=== PATIENT | female | born 1995 | race Caucasian/White ===

== ENCOUNTER 2022-02-17 14:15 | Emergency (ER) | payer OTHER, SELFPAY ==
[2022-02-17 15:25] VITALS: BP 133/87; PULSE 87; RESP 17; TEMP 37.2; O2SAT 99; BMI 27.8
--- NOTE | 2022-02-17 16:17 | HMH.EDUTC ---
[facility] [place] Clinical Impression: Conjunctivitis Qualifiers: Conjunctivitis type: acute Acute conjunctivitis type: unspecified Laterality: right Qualified Code(s): H10.31 - Unspecified acute conjunctivitis, right eye Disposition: Home, Self-Care Condition on Discharge: Good Instructions: How to Instill Eye Drops, DI for Conjunctivitis Additional Instructions: Use the eye drops as directed. Strict hand washing in the house hold, because conjunctivitis is very contagious. Follow up with your regular doctor. GO TO THE ER FOR ANY WORSENING SYMPTOMS OR CONCERNS Prescriptions: Moxifloxacin HCl [Vigamox] 1 drp EYE-RIGHT TID 7 Days #3 ml Transmission Status: Received by [facility] [place] Referrals: Samantha Baker PA [Primary Care Provider] - Time of Disposition: 16:20 Medical Decision Making - Medical Records Medical records reviewed: No: I reviewed the patient's medical records. - Dimitri Inquiry Pt receiving controlled substance: No Vital Signs: 02/17/22 15:25 02/17/22 16:20 Temperature 98.9 F 98.9 F Temperature Source Oral Pulse Rate 87 Pulse Rate [Right Brachial] 87 Respiratory Rate 17 17 Blood Pressure 133/87 Blood Pressure [Right Arm] 133/87 Blood Pressure Mean [Right Arm] 102 Blood Pressure Source [Right Arm] Automatic Cuff Blood Pressure Position [Right Arm] Sitting 02 Sat by Pulse Oximetry 99 Oxygen Delivery Method Room Air [facility] [place] HPI - General Stated complaint: right eye discharge/ congestion Time Seen by Provider: 02/17/22 15:30 Mode of Arrival: Ambulatory Source of Information: Patient Limitations: No Limitations Description of Symptoms (Recalled from Triage Doc. by RN): PATIENT C/O ITCHING, REDNESS, AND YELLOW DRAINAGE FROM RIGHT EYE SINCE YESTERDAY HEENT Symptoms (Recalled from RN notes): Yes Resp Symptoms (Recalled from RN notes): No Skin Symptoms (Recalled from RN notes): No MS Symptoms (Recalled from RN notes): No Functional Status (Recalled from RN notes): WNL - History of Present Illness Provider Complaint: She c/o sore throat, chills and feeling bad for the past 2 days. - Related Data Home Medications Medication Instructions Recorded Confirmed Cetirizine HCl [Zyrtec 10mg Tab*] 10 mg PO DAILY 02/17/22 02/17/22 Previous Rx's Medication Instructions Recorded Moxifloxacin HCl [Vigamox] 1 drp EYE-RIGHT TID 7 Days #3 ml 02/17/22 Allergies Allergy/AdvReac Type Severity Reaction Status Date / Time No Known Allergies Allergy Verified 02/17/22 15:48 - Worker's Comp Is this a Worker's Comp case?: No H History - Hepatitis A Screen Drug use history?: No High risk sexual behaviors?: No History of sexually transmitted infection?: No Currently employed?: No Childcare worker?: No Do you have indoor plumbing?: Yes Do you have electricity?: Yes Attestation statement:: This patient has been screened for Hepatitis A risk factors. I have reviewed the patient's past medical history: Yes ROS Obtained: Yes All systems reviewed & no additional complaints - Constitutional Constitutional: Reports as per HPI - Eyes Eyes: Denies blurry vision - ENT Ears, Nose, Mouth, and Throat: Reports as per HPI - Cardiovascular Cardiovascular: Denies chest pain Physical Exam - General General appearance: alert, in no apparent distress - Head Head exam: atraumatic, normocephalic, normal inspection - Eye Eye exam: Present: normal appearance, PERRL, EOMI - ENT ENT exam: Present: mucous membranes moist, normal external ear exam - Expanded ENT Exam TM/Canal exam: Bilateral TM: erythema, bulging Nose exam: Present: sinus tenderness Nasal speculum exam: Bilateral: normal Mouth exam: Present: normal external inspection, tongue normal. Absent: drooling Teeth exam: Present: normal inspection Throat exam: Present: tonsillar erythema, tonsillomegaly. Absent: tonsillar exudate, R peritonsillar mass, L peritonsillar mass, muffled voi
[2022-02-17 16:20] VITALS: BP 133/87; PULSE 87; RESP 17; TEMP 37.2; O2SAT 99
== END 2022-02-17 16:28 | disposition home or self-care (01) ==
PROVIDERS: Emergency Provider Nurse Practitioner Family; PCP Physician Assistant Medical
DX: H10.31 Unspecified acute conjunctivitis, right eye (principal)
CPT/HCPCS: 99212; G0463

== ENCOUNTER 2022-07-03 12:43 | Emergency (ER) | payer OTHER, SELFPAY ==
[2022-07-03 12:44] VITALS: BP 130/76; PULSE 77; RESP 16; TEMP 37; O2SAT 99; BMI 27.3
--- NOTE | 2022-07-03 12:50 | HMH.EDGENADL ---
Discharge Plan Disposition Patient Disposition: Home, Self-Care Chief Complaint: Eye Problems Prescriptions Prescriptions: No Action cetirizine 10 MG tablet 10 mg PO DAILY moxifloxacin 3 ML drops 1 drp EYE-RIGHT TID 7 Days Qty: 3 0RF Referrals Referrals: Samantha Baker PA [Primary Care Provider] - Enter time for follow up Activity Restrictions/Add. Instructions Additional Instructions/Restrictions: You were evaluated in the emergency department today after getting body fluids into your eye. Follow-up with your primary care provider over the next 48 hours. Should you wish to pursue postexposure prophylaxis, please return or contact your primary care provider. Return to the emergency department for any new or worsening symptoms. 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 She states that her right eye got splashed with body fluid when doing arthroscopic procedure upstairs. She denies any pain or other concerns. No vision changes. She was well prior to this. Related Data Home Medications Medication Instructions Recorded Confirmed cetirizine 10 mg tablet 10 mg PO DAILY Allergy symptoms 02/17/22 02/17/22 Previous Rx's Medication Instructions Recorded moxifloxacin 0.5 % eye drops 1 drp EYE-RIGHT TID 7 days #3 mL 02/17/22 Allergies Allergy/AdvReac Type Severity Reaction Status Date / Time No Known Allergies Allergy Verified 02/17/22 15:48 [facility] Social History Smoking Status: Never smoker alcohol intake: never current occupational status: employed ROS Obtained: Yes All systems reviewed & no additional complaints except as documented Physical Exam General General appearance: alert and in no apparent distress Head Head exam: atraumatic and normocephalic Eye Eye exam: Present normal appearance, PERRL and EOMI ENT ENT exam: Present normal exam Neck Neck exam: Present normal inspection Chest Chest inspection: Present normal inspection and symmetric chest wall rise Respiratory Respiratory exam: Absent respiratory distress Cardiovascular Cardiovascular exam: Present regular rate and normal rhythm Abdominal Exam Abdominal exam: Present soft; Absent distention or tenderness Extremities Exam Extremities exam: Present normal inspection Neurological Exam Neurological exam: Present alert, oriented X3 and CN II-XII intact Psychiatric Psychiatric exam: Present normal affect Skin Skin exam: Present warm and dry Medical Decision Making Medical Records Medical records reviewed: Yes I reviewed the patient's medical records. Dimitri Inquiry Pt receiving controlled substance: No Vital Signs: 07/03/22 12:44 07/03/22 13:34 Temperature 98.6 F 98.6 F Temperature Source Oral Pulse Rate 77 Pulse Rate [Right Radial] 77 Respiratory Rate 16 16 Blood Pressure 130/76 Blood Pressure [Right Arm] 130/76 Blood Pressure Mean [Right Arm] 94 Blood Pressure Source [Right Arm] Automatic Cuff Blood Pressure Position [Right Arm] Sitting 02 Sat by Pulse Oximetry 99 Oxygen Delivery Method Room Air Room Air Lab Data Lab Results 07/03/22 13:00: WBC 8.0, RBC 4.92, Hgb 15.1, Hct 47.4 H, MCV 96.5, MCH 30.7, MCHC 31.8, RDW 13.2, Plt Count 269, MPV 9.0, Neut % (Auto) 58.6, Lymph % (Auto) 32.2, Crenshaw % (Auto) 4.4, Eos % (Auto) 3.1, Baso % (Auto) 1.8, Neut # (Auto) 4.7, Lymph # (Auto) 2.6, Crenshaw # (Auto) 0.4, Eos # (Auto) 0.2, Baso # (Auto) 0.1 07/03/22 13:00: PT 10.6, INR
--- NOTE | 2022-07-03 12:55 | PC.NURSE ---
pt R eye irrigated at this time. Pt denies any burning or pain.
[2022-07-03 12:56] VITALS: BMI 24.5
[2022-07-03 13:34] VITALS: BP 130/76; PULSE 77; RESP 16; TEMP 37; O2SAT 99
[2022-07-03 13:38] LABS: Basophils # 0.1 K/mm3 (0-0.2); Basophils % 1.8 % (0.1-2.0); Eosinophils # 0.2 K/mm3 (0.0-0.4); Eosinophils % 3.1 % (0.1-12.0); Hematocrit 47.4 % (37.0-47.0); Hemoglobin 15.1 g/dL (12.2-16.2); Lymphocytes # 2.6 K/mm3 (0.7-4.5); Lymphocytes % 32.2 % (10-50); Mean Corpuscular HGB Conc 31.8 g/dL (31.8-35.4); Mean Corpuscular Hemoglobin 30.7 pg (27.0-31.2); Mean Corpuscular Volume 96.5 fl (81-99); Monocytes # 0.4 K/mm3 (0.1-1.0); Monocytes % 4.4 % (1.7-9.3); Neutrophils # 4.7 K/mm3 (1.8-7.8); Neutrophils % 58.6 % (37.0-80.0); Platelet Count 269 K/mm3 (142-424); Red Blood Count 4.92 M/mm3 (4.20-5.40); Red Cell Distribution Width 13.2 % (11.5-17.5)
[2022-07-03 13:43] LABS: Activated Partial Thrombo Time 25.2 seconds (22.8-30.6); INR 0.93 (0.9-1.1); Prothrombin Time 10.6 seconds (10.1-12.5)
[2022-07-03 14:04] LABS: Alanine Aminotransferase 33 U/L (12-78); Albumin Level 4.8 g/dl (3.5-5.0); Alkaline Phosphatase 105 U/L (38-126); Aspartate Amino Transferase 39 U/L (14-36); Bilirubin,Direct 0.2 mg/dl (0.0-0.4); Bilirubin,Indirect 0.4 mg/dL (0.0-0.9); Bilirubin,Total 0.6 mg/dl (0.2-1.3); Bilirubin,Unconjugated 0.4 mg/dL (0.0-1.1); Total Protein,Serum 7.8 g/dl (6.3-8.2)
[2022-07-04 09:46] LABS: Hepatitis B Surf Ab Quant >1000.0 mIU/mL (Immunity>9.9); Hepatitis B Surface Antigen Negative (Negative); Hepatitis C Antibody <0.1 s/co ratio (0.0-0.9)
[2022-07-04 11:16] LABS: HIV Screen 4th Generation wRfx Non Reactive (Non Reactive)
== END 2022-07-03 13:34 | disposition home or self-care (01) ==
PROVIDERS: Emergency Provider Emergency Medicine; PCP Physician Assistant Medical
DX: Z77.21 Contact with and (suspected) exposure to potentially hazardous body fluids (principal)
CPT/HCPCS: 80076; 85025; 85610; 85730; 86703; 86706; 87340; 87380; 99282; G0432

== ENCOUNTER 2023-01-20 11:50 | Emergency (ER) | payer OTHER, SELFPAY ==
[2023-01-20 12:01] VITALS: BP 160/100; PULSE 98; RESP 15; TEMP 36.4; O2SAT 100; BMI 28.3
--- NOTE | 2023-01-20 12:18 | PC.NURSE ---
ANNA QUINTERO at for pt willyal
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
[2023-01-20 13:11] VITALS: BP 136/91; PULSE 83; O2SAT 99
--- NOTE | 2023-01-20 13:26 | PC.NURSE ---
ANNA QUINTERO at
[2023-01-20 13:55] VITALS: BP 123/79; PULSE 71; RESP 17; TEMP 36.8; O2SAT 98
== END 2023-01-20 13:56 | disposition home or self-care (01) ==
PROVIDERS: Emergency Provider Emergency Medicine; PCP Physician Assistant Medical
DX: M54.2 Cervicalgia (principal)
CPT/HCPCS: 99283; 99284